=== PATIENT | male | born 1960 | race Caucasian/White ===

== ENCOUNTER → 2019-08-14 | Outpatient (CLI) | payer OTHER ==
[~2019-08-14] MED LIST: AEC81 PO; ATOR40TA69 PO; CARV25TA PO; FURO40TA7 PO; OMEP40CA13 PO
== END | disposition home or self-care (01) ==
LOC: SHCH 08:45
PROVIDERS: ATTEND Internal Medicine Cardiovascular Disease
DX: I42.0 Dilated cardiomyopathy (principal)
CPT/HCPCS: 93306

== ENCOUNTER 2020-02-10 07:10 | Day surgery (SDC) | payer OTHER ==
[2020-02-06 10:23] VITALS: BP 159/80
[2020-02-06 10:41] LABS: BASOPHILS % (AUTO) 1.5 % (0.0-5.0); EOSINOPHILS % (AUTO) 7.4 % (0.0-8.0); HEMATOCRIT 39.8 % (42-54); LYMPHOCYTES % (AUTO) 22.7 % (21.0-51.0); MEAN CORPUSCULAR HEMOGLOBIN 26.9 pg (27.0-33.0); MEAN CORPUSCULAR HGB CONC 32.7 g/dL (32.0-36.0); MEAN CORPUSCULAR VOLUME 82.4 fL (79-99); MONOCYTES % (AUTO) 11.7 % (3.0-13.0); NEUTROPHILS % (AUTO) 55.9 % (40.0-77.0); PLATELET COUNT (AUTO) 238 K/uL (130-400); RED BLOOD CELL COUNT(AUTO) 4.83 MIL/uL (4.50-6.20); RED CELL DISTRIBUTION WIDTH 14.9 % (11.0-15.5); WHITE BLOOD COUNT (AUTO) 7.2 K/uL (4.8-10.8)
[2020-02-06 10:49] LABS: CREATININE 1.3 mg/dL (0.5-1.5); POTASSIUM 4.5 mmol/L (3.5-5.1)
[2020-02-06 10:55] LABS: INR 0.9 (0.85-1.15); PARTIAL THROMBOPLASTIN TIME 26.4 SEC (26.3-35.5); PROTHROMBIN TIME 9.8 SEC (9.6-11.6)
--- NOTE | 2020-02-09 13:45 | NUR ---
RE: ABNORMAL LABS INFORMED JAMAAL MOSLEY REGARDING BUN 21, CREAT 1.3. NO NEW ORDERS RECEIVED.
[2020-02-10] VITALS (11 sets, daily range): BP systolic 106–157; BP diastolic 58–80
[~2020-02-10] VITALS: Ht 170.2 cm; Wt 95.3 kg
--- NOTE | 2020-02-10 07:35 | NUR ---
preop pt arrived via w/c with at side. pt in no distress. pt here for single chamber aicd implant. pt oriented to room and call light. pt has joint swelling due to gout. pt also reported having chronic cough. pt connected to quality assurance monitor body. will continue to monitor pt
[2020-02-10] MEDS ORDERED: SODIUM CHLORIDE 0.9% 1000ML 1,000 ML IV ONE (07:39)
[2020-02-10] MEDS ORDERED: BUPIVACAINE/PF 0.25% 30ML VIAL IJ ONE (10:43)
[2020-02-10] MEDS ORDERED: VANCOMYCIN 1GM+NS 250ML 250 ML IV ONE ×2 (10:44→10:46)
[2020-02-10] MEDS ORDERED: MEPERIDINE-PF 25 MG/ML SYG ONE ×3 (10:45→11:09)
[2020-02-10] MEDS ORDERED: MIDAZOLAM HCL 1 MG/ML 2ML VIAL ONE ×3 (10:45→11:09)
[2020-02-10] MEDS ORDERED: LIDOCAINE HCL 1% MDV 50ML VIAL ONE (10:46)
[2020-02-10] MEDS ORDERED: ACETAMINOPHEN 325 MG TAB PO PRN ×2 (12:15)
[2020-02-10] MEDS ORDERED: ONDANSETRON HCL 4 MG/2 ML VIAL IV PRN (12:15)
--- NOTE | 2020-02-10 15:10 | NUR ---
report hand off communication given to deyanira purdy rn
--- NOTE | 2020-02-10 15:10 | NUR ---
Report received from WAQAS Shirley. Checked pt's dressing. Dressing remains clean, dry and intact, with pressure dressing on and sling in place. Pt reminded to keep sling in place and refrain from elevating arm above shoulder level for 6 weeks. Pt denies any complaints at the moment.
--- NOTE | 2020-02-10 16:30 | NUR ---
X-ray here to take pt to x-ray. Pt states they experienced some relief of pain from the Tylenol but left chest remains tender. Pt taken via wheel-chair, up out of bed. Denies any dizziness, ambulates well. Addendum: 02/10/20 at 1705 by TYREL DURANT RN RN Dressing to left chest remains clean, dry, and intact with pressure dressing and sling in place.
--- NOTE | 2020-02-10 16:45 | NUR ---
Pt back from x-ray, tolerated well, pt back into bed, resting comfortably, denies any complaints.
--- NOTE | 2020-02-10 17:00 | NUR ---
Chest x-ray report reviewed and findings reported to pt. Pacemaker and chest leads in proper placement, no pneumothorax or any other significant findings. Pt due to go home at 18:00. Addendum: 02/10/20 at 1706 by TYREL DURANT RN RN Dressing to left chest remains clean, dry, and intact with pressure dressing and sling in place.
--- NOTE | 2020-02-10 17:40 | NUR ---
It was brought to my attention that the patient had been prescribed Doxycycline Hyclate however the patient is allergic to tetracyclines. Spoke with JAMAAL Parekh and given new prescription of Bactrim DS 1 tab PO BID x 10 days to be called into pharmacy. Prescription called into [facility].
--- NOTE | 2020-02-10 18:10 | NUR ---
Pt discharged home, tolerating solids/fluids well, voided prior to discharge home, ambulating well. Pressure dressing to left chest removed, gauze and OpSite remain intact, dressing with very minimal blood, site with small amount of swelling. Pt reminded to keep sling on and to not lift arm above shoulder level for next 6 weeks. Pt denies any severe pain, nausea or dizziness. Informed pt that new prescription was called into [facility] [place],but if they experienced any difficulty to call Dr. Hoskins's office tomorrow. Instructed pt to take Bactrim DS one tablet PO BID. Pt and spouse deny any further questions at this time.
== END 2020-02-10 18:10 | disposition home or self-care (01) ==
LOC: DAH 07:10
PROVIDERS: ATTEND Internal Medicine Cardiovascular Disease
DX: I42.8 Other cardiomyopathies (principal); I50.42 Chronic combined systolic (congestive) and diastolic (congestive) heart failure; M10.9 Gout, unspecified; Z79.899 Other long term (current) drug therapy; Z98.890 Other specified postprocedural states; Z88.0 Allergy status to penicillin; Z88.8 Allergy status to other drugs, medicaments and biological substances; Z79.82 Long term (current) use of aspirin; Z79.01 Long term (current) use of anticoagulants; Z86.19 Personal history of other infectious and parasitic diseases
CPT/HCPCS: 33249; 36415; 71046; 80048; 85025; 85610; 85730; 93005; A4215; A4216; A4221; A4222; A4223 ×3; A4606; A4663; C1722; C1894; C1895; J2175 ×3; J2250 ×3; J3370 ×2; J3490 ×2; J7030 ×2; 99156; 99157

== ENCOUNTER 2021-08-09 20:34 | Inpatient (IN) | payer OTHER ==
[~2021-08-09] VITALS: Ht 170.2 cm; Wt 101.7 kg
[~2021-08-09 20:34] MED LIST changes: -OMEP40CA13 PO; +OMEP40CA21 PO
[2021-08-09] MEDS ORDERED: NITROGLYCERIN 50MG VIAL ONE (21:18)
[2021-08-09] MEDS ORDERED: SODIUM BICARB 50MEQ 50ML VIAL 50 ML ONE (21:18)
[2021-08-09] MEDS ORDERED: IOHEXOL-350 75 ML VIAL IV ONE (21:18)
[2021-08-09] MEDS ORDERED: IOHEXOL-350 50ML VIAL IV ONE (21:18)
[2021-08-09] MEDS ORDERED: BIVALIRUDIN 250 MG/VIAL IV ONE (21:18)
[2021-08-09] MEDS ORDERED: FENTANYL CITRATE PF 50 MCG/1 ML 2ML VIAL ONE (21:19)
[2021-08-09] MEDS ORDERED: MIDAZOLAM HCL 1 MG/ML 2ML VIAL ONE (21:19)
[2021-08-09] MEDS ORDERED: LIDOCAINE HCL 1% MDV 50ML VIAL ONE (21:19)
[2021-08-09 21:43] VITALS: BP 135/86
[2021-08-09] MEDS ORDERED: ACETAMINOPHEN 325 MG TAB PO PRN (22:00)
[2021-08-09] MEDS ORDERED: ONDANSETRON 4MG INJ IV PRN (22:00)
[2021-08-09] MEDS ORDERED: [UNRECOGNIZED DRUG - OTHER] MISC SCH (22:00)
[2021-08-09] MEDS ORDERED: MORPHINE 4 MG SYG IV PRN (22:00)
[2021-08-09] MEDS ORDERED: MORPHINE 2 MG SYG IV PRN (22:00)
[2021-08-09 22:14] LABS: BASOPHILS % (AUTO) 1.3 % (0.0-5.0); EOSINOPHILS % (AUTO) 2.6 % (0.0-8.0); HEMATOCRIT 44.6 % (42-54); MEAN CORPUSCULAR HGB CONC 33.6 g/dL (32.0-36.0); MEAN CORPUSCULAR VOLUME 83.4 fL (79-99); MONOCYTES % (AUTO) 10.9 % (3.0-13.0); NEUTROPHILS % (AUTO) 65.7 % (40.0-77.0); PLATELET COUNT (AUTO) 275 K/uL (130-400); RED BLOOD CELL COUNT(AUTO) 5.35 MIL/uL (4.50-6.20); RED CELL DISTRIBUTION WIDTH 14.9 % (11.0-15.5); WHITE BLOOD COUNT (AUTO) 12.2 K/uL (4.8-10.8)
[2021-08-09 22:28] LABS: INR 1.02 (0.85-1.15); PROTHROMBIN TIME 11.1 SEC (9.6-11.6)
[2021-08-09] MEDS ORDERED: DONE-53 PO (22:38)
[2021-08-09] MEDS ORDERED: EMPA1TAB19 PO (22:39)
[2021-08-09] MEDS ORDERED: ALLO300T2 PO (22:40)
[2021-08-09 22:42] LABS: ALBUMIN 3.9 g/dL (3.5-5.0); BILIRUBIN,TOTAL 0.9 mg/dL (0.2-1.0); CREATININE 1.2 mg/dL (0.5-1.5); MAGNESIUM 2.4 mg/dL (1.80-2.40); PHOSPHORUS 3.9 mg/dL (2.5-4.9); POTASSIUM 4.3 mmol/L (3.5-5.1); TOTAL PROTEIN, SERUM 7.5 g/dL (6.0-8.3)
[2021-08-09] MEDS ORDERED: CARVEDILOL 6.25 MG TABLET PO ONE (23:05)
[2021-08-09] MEDS ORDERED: CLOPIDOGREL 75MG TAB PO ONE (23:05)
[2021-08-09] MEDS: NITROGLYCERIN 1GM OINT 1 INCH/1GM TD SCH (23:27)
[2021-08-09] MEDS: 0.9%NACL 1000ML 1,000 ML IV SCH (23:27)
[2021-08-10] VITALS (14 sets, daily range): BP systolic 115–151; BP diastolic 65–96
[2021-08-10] MEDS: NITROGLYCERIN 1GM OINT 1 INCH/1GM TD SCH ×3 (05:04→21:37)
[2021-08-10 05:14] LABS: BASOPHILS % (AUTO) 1.1 % (0.0-5.0); HEMATOCRIT 40.3 % (42-54); LYMPHOCYTES % (AUTO) 16.7 % (21.0-51.0); MEAN CORPUSCULAR HEMOGLOBIN 27.2 pg (27.0-33.0); MEAN CORPUSCULAR HGB CONC 33.5 g/dL (32.0-36.0); MEAN CORPUSCULAR VOLUME 81.1 fL (79-99); MONOCYTES % (AUTO) 11.1 % (3.0-13.0); NEUTROPHILS % (AUTO) 67.7 % (40.0-77.0); PLATELET COUNT (AUTO) 224 K/uL (130-400); RED BLOOD CELL COUNT(AUTO) 4.97 MIL/uL (4.50-6.20); RED CELL DISTRIBUTION WIDTH 14.7 % (11.0-15.5); WHITE BLOOD COUNT (AUTO) 10.9 K/uL (4.8-10.8)
[2021-08-10 05:25] LABS: CREATININE 1.2 mg/dL (0.5-1.5); POTASSIUM 4.1 mmol/L (3.5-5.1)
[2021-08-10 05:39] LABS: HEMOGLOBIN A1C 7.8 % (4.0-6.0)
[2021-08-10] MEDS: HEPARIN 5,000 UNIT VIAL SQ SCH ×3 (09:00→21:38)
[2021-08-10] MEDS: CLOPIDOGREL 75MG TAB PO SCH (09:00)
[2021-08-10] MEDS: FAMOTIDINE 20MG VIAL IV SCH ×2 (09:27→21:28)
[2021-08-10] MEDS: ASPIRIN 81MG CHEW TAB PO SCH (09:28)
[2021-08-10] MEDS: LISINOPRIL 10 MG TABLET PO SCH (09:29)
[2021-08-10] MEDS: CARVEDILOL 3.125 MG TABLET PO SCH ×2 (09:29→16:08)
[2021-08-10] MEDS ORDERED: NITROGLYCERIN 50MG VIAL ONE (13:14)
[2021-08-10] MEDS ORDERED: SODIUM BICARB 50MEQ 50ML VIAL 50 ML ONE (13:14)
[2021-08-10] MEDS ORDERED: IOHEXOL-350 50ML VIAL IV ONE (13:14)
[2021-08-10] MEDS ORDERED: IOHEXOL 350 MG/ML 100ML INFUS..BTL IV ONE (13:14)
[2021-08-10] MEDS ORDERED: FENTANYL CITRATE PF 50 MCG/1 ML 2ML VIAL ONE ×2 (13:14→15:13)
[2021-08-10] MEDS ORDERED: MIDAZOLAM HCL 1 MG/ML 2ML VIAL ONE ×2 (13:14→15:13)
[2021-08-10] MEDS ORDERED: LIDOCAINE HCL 400MG/20ML VIAL ONE (13:15)
[2021-08-10] MEDS ORDERED: BIVALIRUDIN 250 MG/VIAL IV ONE (15:46)
[2021-08-10] MEDS ORDERED: HEPARIN 10,000 UNIT/10ML (1,000 UNIT/ML) VIAL ONE (15:46)
[2021-08-10] MEDS ORDERED: NICARDIPINE 25MG INJ IV ONE (15:46)
[2021-08-10] MEDS ORDERED: 0.9% NACL 500ML IV.SOLN 500 ML IV SCH (17:00)
[2021-08-10] MEDS: ATORVASTATIN 40 MG TABLET PO SCH (21:28)
[2021-08-10] MEDS: 0.9%NACL 1000ML 1,000 ML IV SCH (22:00)
[2021-08-11] VITALS (7 sets, daily range): BP systolic 106–139; BP diastolic 67–77
[2021-08-11 03:42] LABS: BASOPHILS % (AUTO) 0.7 % (0.0-5.0); EOSINOPHILS % (AUTO) 1.6 % (0.0-8.0); HEMATOCRIT 40.5 % (42-54); LYMPHOCYTES % (AUTO) 14.4 % (21.0-51.0); MEAN CORPUSCULAR HGB CONC 33.8 g/dL (32.0-36.0); MEAN CORPUSCULAR VOLUME 82.7 fL (79-99); MONOCYTES % (AUTO) 14.9 % (3.0-13.0); PLATELET COUNT (AUTO) 194 K/uL (130-400); RED CELL DISTRIBUTION WIDTH 14.6 % (11.0-15.5); WHITE BLOOD COUNT (AUTO) 12.2 K/uL (4.8-10.8)
[2021-08-11 04:03] LABS: ALBUMIN 3.2 g/dL (3.5-5.0); BILIRUBIN,TOTAL 1.5 mg/dL (0.2-1.0); CREATININE 1.3 mg/dL (0.5-1.5); POTASSIUM 3.6 mmol/L (3.5-5.1); TOTAL PROTEIN, SERUM 6.7 g/dL (6.0-8.3)
[2021-08-11] MEDS: NITROGLYCERIN 1GM OINT 1 INCH/1GM TD SCH ×3 (06:02→20:57)
[2021-08-11] MEDS: CARVEDILOL 3.125 MG TABLET PO SCH ×2 (08:38→17:03)
[2021-08-11] MEDS: CLOPIDOGREL 75MG TAB PO SCH (08:38)
[2021-08-11] MEDS: FAMOTIDINE 20MG VIAL IV SCH ×2 (08:38→20:56)
[2021-08-11] MEDS: LISINOPRIL 10 MG TABLET PO SCH (08:39)
[2021-08-11] MEDS: ASPIRIN 81MG CHEW TAB PO SCH (08:39)
[2021-08-11] MEDS: HEPARIN 5,000 UNIT VIAL SQ SCH ×3 (08:47→20:57)
[2021-08-11] MEDS ORDERED: LISI10TA24 PO (11:56)
[2021-08-11] MEDS ORDERED: CARV3.1262 PO (11:56)
[2021-08-11] MEDS ORDERED: CLOP75TA14 PO (11:56)
[2021-08-11] MEDS ORDERED: ATOR40TA69 PO (11:56)
[2021-08-11] MEDS: ATORVASTATIN 40 MG TABLET PO SCH (20:56)
[2021-08-11] MEDS: 0.9%NACL 1000ML 1,000 ML IV SCH (22:17)
[2021-08-12 03:48] VITALS: BP_SYST 122; BP_SYST 98; BP_DIAS 58; BP_DIAS 62
[2021-08-12] MEDS: NITROGLYCERIN 1GM OINT 1 INCH/1GM TD SCH (06:09)
[2021-08-12 08:00] VITALS: BP 127/77
[2021-08-12] MEDS: LISINOPRIL 10 MG TABLET PO SCH (08:16)
[2021-08-12] MEDS: CLOPIDOGREL 75MG TAB PO SCH (08:16)
[2021-08-12 08:17] VITALS: BP 127/77
[2021-08-12] MEDS: CARVEDILOL 3.125 MG TABLET PO SCH (08:17)
[2021-08-12] MEDS: ASPIRIN 81MG CHEW TAB PO SCH (08:17)
[2021-08-12] MEDS: FAMOTIDINE 20MG VIAL IV SCH (08:18)
[2021-08-12] MEDS: HEPARIN 5,000 UNIT VIAL SQ SCH (08:23)
[2021-08-12] MEDS ORDERED: CARV12.511 PO (09:52)
== END 2021-08-12 11:19 | disposition home or self-care (01) | DRG 281 ==
LOC: 2DH 21:34
PROVIDERS: ADMIT Internal Medicine; ATTEND Internal Medicine
PROC: B2111ZZ Fluoroscopy of Multiple Coronary Arteries using Low Osmolar Contrast (ICD-10-PCS; principal; 2021-08-10)
DX: I21.4 Non-ST elevation (NSTEMI) myocardial infarction (principal); I50.22 Chronic systolic (congestive) heart failure; I11.0 Hypertensive heart disease with heart failure; Z20.822 Contact with and (suspected) exposure to COVID-19; Z95.810 Presence of automatic (implantable) cardiac defibrillator; K21.9 Gastro-esophageal reflux disease without esophagitis; Z86.73 Personal history of transient ischemic attack (TIA), and cerebral infarction without residual deficits; E11.9 Type 2 diabetes mellitus without complications; M10.9 Gout, unspecified; I25.10 Atherosclerotic heart disease of native coronary artery without angina pectoris
CPT/HCPCS: 36415; 71045; 80048; 80053; 80061; 83036; 83735; 84100; 84484; 85025; 85610; 85730; 86850; 86870; 86900; 86901; 87635; 93005; 93306; 93454; 99156; 99157; G0378; J0583; J1644; J2250; J3010; J3490; J7030; Q9967